=== PATIENT | male | born 1975 | race Caucasian/White ===

== ENCOUNTER → 2016-07-06 | Outpatient (CLI) | payer BC ==
[~2016-07-06] MED LIST: AMOXICILLIN 50500 MG PO; NO HOME MEDICATIONS
== END ==
LOC: MHCPAIN 10:06
DX: G89.29 Other chronic pain (principal); M51.24 Other intervertebral disc displacement, thoracic region; M47.814 Spondylosis without myelopathy or radiculopathy, thoracic region
CPT/HCPCS: G0463

== ENCOUNTER → 2016-07-21 | Outpatient (CLI) | payer BC | LOC: MHCPAIN 10:07 | DX: M47.815 Spondylosis without myelopathy or radiculopathy, thoracolumbar region (principal) | CPT/HCPCS: J1100 ==

== ENCOUNTER → 2016-07-27 | Outpatient (CLI) | payer BC | LOC: MHCPAIN 10:40 | DX: G89.29 Other chronic pain (principal); M47.817 Spondylosis without myelopathy or radiculopathy, lumbosacral region; F12.90 Cannabis use, unspecified, uncomplicated | CPT/HCPCS: G0463 ==

== ENCOUNTER → 2016-08-04 | Outpatient (CLI) | payer BC | LOC: MHCPAIN 12:14 | DX: M51.34 Other intervertebral disc degeneration, thoracic region (principal) | CPT/HCPCS: J1040; Q9967 ==

== ENCOUNTER → 2016-09-02 | Outpatient (CLI) | payer BC | LOC: MHCPAIN 09:58 | DX: G89.29 Other chronic pain (principal); M47.814 Spondylosis without myelopathy or radiculopathy, thoracic region | CPT/HCPCS: G0463 ==